=== PATIENT | female | born 1930 | race Caucasian/White ===

== ENCOUNTER 2021-12-16 21:56 | Emergency (ER) | payer MEDICARE, MEDICAID ==
[2021-12-16 22:48] LABS: Hemoglobin 15.4 g/dL (12.0-15.5); Mean Corpuscular HGB CONC 33.8 g/dL (32.0-36.0); Mean Corpuscular Hemoglobin 31.2 pg (27.0-33.0); Mean Corpuscular Volume 92.3 fl (81.6-98.3); Mean Platelet Volume 10.9 fl (7.4-10.4); Platelet Count 251 10x3/uL (150-450); RBC Distribution Width 13.6 % (11.5-14.5); Red Blood Cell (RBC) Count 4.93 10x6/uL (3.90-5.03); White Blood Cell (WBC) Count 7.5 10x3/uL (3.5-10.5)
[2021-12-16 23:04] LABS: ALT (SGPT) 6 U/L (8-55); AST (SGOT) 18 U/L (5-34); Albumin 3.8 g/dL (3.4-4.8); Alkaline Phosphatase 80 U/L (40-110); Anion Gap 14 mmol/L (10-20); BUN (Urea Nitrogen) 10 mg/dL (9.8-20.1); Bilirubin, Total 0.7 mg/dL (0.2-1.2); Calc. Creatinine Clearance 0 mL/min (70-130); Calcium 10.3 mg/dL (7.8-10.44); Carbon Dioxide 28 mmol/L (23-31); Chloride 103 mmol/L (98-107); Estimated GFR 67; Globulin 2.6 g/dL (2.4-3.5); Glucose 82 mg/dL (83-110); Potassium 3.5 mmol/L (3.5-5.1); Protein, Total 6.4 g/dL (5.8-8.1); Sodium 141 mmol/L (136-145)
[2021-12-16 23:10] LABS: MDiff Complete? YES
[2021-12-16 23:13] LABS: Lymphocytes 16 % (21-51); Monocytes 15 % (0-10); Neutrophil 57 % (42-75); Reactive Lymphocytes 12 % (0-10)
[2021-12-16 23:14] LABS: Platelet Morphology Comment Appears Adequate; RBC Morphology Normal
[2021-12-16 23:23] LABS: Bilirubin Neg (Negative); Blood, Urine 150 (Negative); Clarity Sl. Cloudy (Clear); Glucose, Urine (Dipstick) 50 mg/dL (Negative); Ketone, Urine Negative (Negative); Leukocyte 500 (Negative); Nitrite Negative (Negative); Protein, Urine (Dipstick) 15 mg/dl (Neg-Trace); Specific Gravity, Urine 1.025 (1.005-1.030)
[2021-12-16 23:36] LABS: RBC/HPF 0-3 HPF (0-3); WBC/HPF Greater than 50 HPF (0-3)
[2021-12-16 23:37] LABS: Bacteria/HPF 3+ HPF (None Seen)
[2021-12-17] MEDS ORDERED: Acetaminophen 500 MG TAB ONE (00:07)
== END 2021-12-17 00:49 | disposition home or self-care (01) ==
LOC: CSHERS 21:56
DX: N39.0 Urinary tract infection, site not specified (principal); R53.1 Weakness; I10 Essential (primary) hypertension; I48.91 Unspecified atrial fibrillation; E78.5 Hyperlipidemia, unspecified
CPT/HCPCS: 51701; 70450; 71045; 80053; 81003; 81015; 84484; 85025; 87086; 93005